=== PATIENT | male | born 1990 ===

== ENCOUNTER 2016-10-17 15:10 | Emergency (ER) | payer OTHER ==
[2016-10-17] MEDS ORDERED: Morphine 4 MG/ML VIAL IV STA (15:37)
[2016-10-17] MEDS ORDERED: Propofol 10 mg/ml Inj (20 ML) IV ONE (15:37)
[2016-10-17] MEDS ORDERED: Morphine 4 MG/ML VIAL ONE (15:42)
[2016-10-17] MEDS ORDERED: Propofol 10 mg/ml Inj (20 ML) ONE (16:20)
--- NOTE | 2016-10-17 16:35 | C.PDOC ---
History Of Present Illness 26 y/o male presents [facility] ER [facility] with complaints of acute left shoulder deformity. Patient slipped and fell in mud while playing paint ball 2 hours [employer]ER[employer]. Patient FOOSH with extreme ABduction shoulder. Patient denies any numbness, dizziness or headache. No other complaints at this time Time Seen by Provider: 10/17/16 15:34 Chief Complaint (Nursing): Upper Extremity Problem/Injury History Per: Patient Onset/Duration Of Symptoms: Hrs Severity: Mild Past Medical History Reviewed: Historical Data, Nursing Documentation, Vital Signs Vital Signs: Last Vital Signs Temp 98.0 F 10/17/16 16:46 Pulse 71 10/17/16 16:49 Resp 16 10/17/16 16:49 BP 121/67 10/17/16 16:49 Pulse Ox 98 10/17/16 17:58 - Medical History PMH: Asthma - [facility] Procedures CL REDUC DISLOC-SHOULDER (01/22/15) Family History: States: Unknown Family Hx - Social History Hx Tobacco Use: Yes Hx Alcohol Use: Yes Hx Substance Use: No - Immunization History Hx Tetanus Toxoid Vaccination: No Hx Influenza Vaccination: No Hx Pneumococcal Vaccination: No Review Of Systems Except As Marked, All Systems Reviewed And Found Negative. Constitutional: Negative for: Fever, Chills Respiratory: Negative for: Shortness of Breath Gastrointestinal: Negative for: Nausea, Vomiting, Diarrhea Musculoskeletal: Positive for: Shoulder Pain (left shoulder pain) Skin: Negative for: Rash Neurological: Negative for: Weakness, Numbness Physical Exam - Physical Exam Appears: Well, Non-toxic, No Acute Distress Skin: Normal Color, Warm Head: Atraumatic, Normacephalic Oral Mucosa: Moist Neck: Normal, Normal ROM Respiratory: Normal Breath Sounds Extremity: Deformity (left deltoid step off) Pulses: Left Carotid: Normal, Right Carotid: Normal Neurological/Psych: Oriented x3, Normal Speech, Normal Cognition Pain Response: Withdraws With Pain ED Course And Treatment O2 Sat by Pulse Oximetry: 98 (Room air ) Pulse Ox Interpretation: Normal - Other Rad L shoulder X-Ray: Interpreted by Me (+ disloc, no fx) post-redux X-Ray: Interpreted by Me (+ good reloc, no fx) Reevaluation Time: 16:35 Reassessment Condition: Improved Medical Decision Making Medical Decision Making: accidental 2nd L shoulder disloc due to FOOSH now s/p good reloc with traction/counter traction. Disposition Doctor Will See Patient In The: Office Counseled Patient/Family Regarding: Studies Performed, Diagnosis - Disposition Referrals: Shaik Nation MD [Staff Provider] - Rikki Leiva MD [Staff Provider] - Disposition: HOME/ ROUTINE Disposition Time: 16:36 Condition: GOOD Additional Instructions: ice packs 1/2 hour per hour, nothing hot. Keep shoulder sling and swath in place- removed only to shower, do NOT wash your hair. Motrin 400-600 mg every 6 hours as needed Pepcid 20 mg @ night to prevent stomach irritation from the Motrin Tramadol 50 mg (narcotic) 1-2 tabs every 6 hours as needed for more intense pain Follow-up with Dr. Leiva- Orthopedic Surgeon- for further eval. Prescriptions: traMADol [Ultram] 50 mg PO Q6H PRN #20 tab PRN Reason: pain Instructions: Shoulder Dislocation (ED) Forms: Work Excuse - Clinical Impression Clinical Impression: Dislocation of left shoulder joint - PA / WARNING COORDINATION METEOROLOGIST / Resident Statement MD/DO has reviewed & agrees with the documentation as recorded. MD/DO has examined the patient and agrees with the treatment plan. - Scribe Statement The provider has reviewed the documentation as recorded by the [facility] Arshad All medical record entries made by the [facility] were at my direction and personally dictated by me. I have reviewed the chart and agree that the record accurately reflects my personal performance of the history, physical exam, medical decision making, and the department course for this patient. I have also personally directed, reviewed, and agree with the discharge instructions and disposition.
[2016-10-17 16:47] VITALS: TEMP 98
[2016-10-17 16:52] VITALS: BP 121/67; PULSE 71; RESP 16
--- NOTE | 2016-10-17 17:25 | RAD ---
PROCEDURE: Left shoulder x-ray. HISTORY: slip fall, L shoulder disloc COMPARISON: Comparison is made to 01/22/2015 TECHNIQUE: AP view of the left shoulder was obtained. FINDINGS: There is anterior dislocation of the left shoulder. IMPRESSION: Anterior dislocation of the left shoulder. Follow-up study is suggested.
--- NOTE | 2016-10-17 17:29 | RAD ---
PROCEDURE: AP view of the left shoulder HISTORY: post-redux COMPARISON: Comparison is made to the previous same exam. TECHNIQUE: Only AP view of the left shoulder was obtained. FINDINGS: Status post reduction of the previously seen anterior dislocation of the left glenohumeral joint. No evidence of acute fracture. IMPRESSION: Status post reduction of the left shoulder dislocation seen in the previous exam.
[2016-10-17 17:54] VITALS: O2SAT 98
== END 2016-10-17 17:30 | disposition home or self-care (01) ==
LOC: C.ER 15:10
DX: S43.085A Other dislocation of left shoulder joint, initial encounter (principal); W01.0XXA Fall on same level from slipping, tripping and stumbling without subsequent striking against object, initial encounter; Y93.89 Activity, other specified; Y92.89 Other specified places as the place of occurrence of the external cause
CPT/HCPCS: 23650; 73020; 96374; 99285; J1885; J2270; J2704